=== PATIENT | female | born 1965 | race Caucasian/White ===

== ENCOUNTER 2016-04-09 16:49 | Inpatient (IN) | payer OTHER ==
[~2016-04-09] VITALS: Ht 160 cm; Wt 55.5 kg
[~2016-04-09 16:49] MED LIST: ACETAMINOPHN-T1 EACH PO; ALDACTONE50 MG PO; ALYACEN1 EACH PO; AMLODIPINE BESY10 MG PO; AMLODIPINE BESYL5 MG PO; APRESOLINE100 MG PO; APRESOLINE50 MG PO; ASPIR 8181 M1 PO; ASPIR-LOW81 MG PO; BENAZEPRIL HCL20 MG PO; BUMETANIDE1 MG PO; BUMETANIDE2 MG PO; BYSTOLIC10 MG PO; CALCIUM ACETAT667 MG PO; CLOBETASOL PROP60 GM TP; CLOPIDOGREL75 MG PO; COLACE100 MG PO; COREG12.5 M1 PO; COREG25 M1 PO; CYANOCOBAL1000 MCG/2 IM; Colchicine,Colcrys PO; DAPSONE100 MG PO; DELTASONE20 M1 PO; DOXAZOSIN MESYLA1 MG PO; DOXAZOSIN MESYLA2 MG PO; ENDOCET 5-3251 EACH PO; EYE DROPS ADVAN15 ML BOTH EYES; FERROUS SULFAT325 MG PO; FUROSEMIDE40 MG PO; GABAPENTIN100 MG PO; HUMALOG100 UNIT/1 SC; IMDUR60 MG PO; KEFLEX500 MG PO; KLOR-CON M2020 MEQ PO; LANTUS 10100 UNITS/ SC; LASIX20 MG PO; LASIX80 MG PO; LEVAQUIN500 MG PO; LEVEMIR100 UNIT/2 SC; LEVOFLOXACIN750 MG PO; LIPITOR80 MG PO; LITE COAT ASPI325 M1 PO; LOPRESSOR50 MG PO; LOSARTAN POTAS100 MG PO; LYRICA100 MG PO; MEPRON750 MG/5 M PO; METOLAZONE5 MG PO; MIRALAX17 GM PO; NABI650T PO; NEUPRO1 EAC3 TD; NORVASC10 MG PO; PANTOPRAZOLE SO20 MG PO; PANTOPRAZOLE SO40 MG PO; PLAQUENIL200 MG PO; PLAVIX75 MG PO; PRAVACHOL80 MG PO; PRAVASTATIN SOD40 MG PO; PRAVASTATIN SOD80 MG PO; PREDNISONE10 MG PO; PREDNISONE20 MG PO; PROCRIT10000 UNI1 SC; SIMVASTATIN20 MG PO; SPIRONOLACTONE25 MG PO; SPIRONOLACTONE50 MG PO; TYLENOL REGULA325 MG PO; ULTRAM50 MG PO; ZOFRAN4 MG PO; ZOLOFT25 MG PO; ZOLOFT50 MG PO
[2016-04-09 17:42] LABS: HEMATOCRIT 36.7 % (36.0-46.0); MCH 32.9 PG (29.0-34.0); MCV 99.7 FL (83-99); MEAN PLAT.VOLUME 10.4 uM^3 (9.5-12.4); PLATELET COUNT 205 K/uL (156-360); RBC DIS.WIDTH-CV 14.7 % (11.8-14.6); RBC DIS.WIDTH-SD 51.5 % (39-53); RED BLOOD COUNT 3.68 M/uL (3.80-5.20); WHITE BLOOD COUNT 12.3 K/uL (4.1-10.2)
[2016-04-09 17:43] LABS: CHLORIDE 99 mEq/L (99-109); POTASSIUM 4.8 mEq/L (3.7-5.4); SODIUM 135 mEq/L (136-147)
[2016-04-09 17:46] LABS: ANION GAP 15 MEQ/L (2-14)
[2016-04-09 17:49] LABS: GFR ESTIMATE (CALCULATED) 21 mL/min/; UREA NITROGEN (BUN) 64 mg/dL (9-23)
[2016-04-09 17:57] LABS: TROP-I INTERPRETATION NEGATIVE; TROPONIN-I 0.07 ng/mL (0.0-0.30)
[2016-04-09 18:05] LABS: GLUCOSE 425 mg/dL (70-99)
[2016-04-09 18:59] LABS: D-DIMER ELISA 0.87 mg/L FEU (< 0.57)
[2016-04-09] MEDS ORDERED: ALDACTONE25 MG PO (20:19)
[2016-04-09] MEDS ORDERED: PROTONIX40 MG PO (20:21)
[2016-04-09] MEDS ORDERED: CELLCEPT500 MG PO (20:24)
[2016-04-09] MEDS ORDERED: BUMETANIDE2 MG PO (20:24)
[2016-04-09 22:42] LABS: POINT-OF-CARE METER ID UU13113702
[2016-04-09 23:08] VITALS: BP 138/66
[2016-04-10 04:00] VITALS: BP 153/81
[2016-04-10 06:23] LABS: HEMATOCRIT 29.1 % (36.0-46.0); MCH 32.3 PG (29.0-34.0); MCHC 32.3 G/DL (30.0-36.0); MEAN PLAT.VOLUME 9.8 uM^3 (9.5-12.4); PLATELET COUNT 163 K/uL (156-360); RBC DIS.WIDTH-SD 55.1 % (39-53); WHITE BLOOD COUNT 9.3 K/uL (4.1-10.2)
[2016-04-10 06:24] LABS: RED BLOOD COUNT 2.91 M/uL (3.80-5.20)
[2016-04-10 06:38] LABS: ANION GAP 7 MEQ/L (2-14); CHLORIDE 109 MEQ/L (99-109); SAMPLE HEMOLYSIS CHECK 0; SAMPLE ICTERIC CHECK 0; SAMPLE LIPEMIA CHECK 0; SODIUM 141 MEQ/L (136-147); UREA NITROGEN (BUN) 44 mg/dL (9-23)
[2016-04-10 06:41] LABS: GFR ESTIMATE (CALCULATED) 39 mL/min/; GLUCOSE 141 mg/dL (70-99); POTASSIUM 3.8 MEQ/L (3.7-5.4)
[2016-04-10 07:34] LABS: POINT-OF-CARE METER ID UU14174216
[2016-04-10 08:27] LABS: TROP-I INTERPRETATION NEGATIVE; TROPONIN-I 0.09 ng/mL (0.0-0.30)
[2016-04-10 09:28] VITALS: BP 151/76
[2016-04-10 11:42] LABS: POINT-OF-CARE METER ID UU14174216
[2016-04-10 12:35] VITALS: BP 128/66
[2016-04-10 16:27] VITALS: BP 134/65
[2016-04-10 16:29] LABS: POINT-OF-CARE METER ID UU14174216
[2016-04-10 19:53] VITALS: BP 141/67
[2016-04-10 23:55] VITALS: BP 142/67
[2016-04-11 04:00] VITALS: BP 136/73
[2016-04-11 06:52] LABS: EOSINOPHIL (%) 0 % (0-5); IMMATURE GRANULOCYTE (%) 1.9 % (0.0-0.7); IMMATURE GRANULOCYTE COUNT 0.2 K/uL; LYMPHOCYTE COUNT 0.5 K/uL (1.0-2.8); MCH 32.1 PG (29.0-34.0); MCHC 31.9 G/DL (30.0-36.0); MCV 100.6 FL (83-99); MEAN PLAT.VOLUME 10.5 uM^3 (9.5-12.4); MONOCYTE (%) 6.2 % (3-12); MONOCYTE COUNT 0.5 K/uL (0-0.8); NEUTROPHIL (%) 85.3 % (45-76); NEUTROPHIL COUNT 6.8 K/uL (1.8-6.4); NRBC (%) 0.9 /100 WBC (0-0); PLATELET COUNT 171 K/uL (156-360); RBC DIS.WIDTH-CV 15.2 % (11.8-14.6); RED BLOOD COUNT 3.18 M/uL (3.80-5.20)
[2016-04-11 07:20] LABS: ANION GAP 8 MEQ/L (2-14); CHLORIDE 105 MEQ/L (99-109); GFR ESTIMATE (CALCULATED) 42 mL/min/; POTASSIUM 3.4 MEQ/L (3.7-5.4); SAMPLE HEMOLYSIS CHECK 0; SAMPLE ICTERIC CHECK 0; SAMPLE LIPEMIA CHECK 0; SODIUM 144 MEQ/L (136-147); UREA NITROGEN (BUN) 32 mg/dL (9-23)
[2016-04-11 07:21] LABS: GLUCOSE 86 mg/dL (70-99)
[2016-04-11 07:25] LABS: POINT-OF-CARE METER ID UU14174216
[2016-04-11 07:27] VITALS: BP 169/81
[2016-04-11 11:13] LABS: POINT-OF-CARE METER ID UU14174216
[2016-04-11 12:00] VITALS: BP 129/61
[2016-04-11 16:24] LABS: POINT-OF-CARE METER ID UU14174216
[2016-04-11 16:44] VITALS: BP 131/65
[2016-04-11 19:43] VITALS: BP 142/65
[2016-04-11 21:10] LABS: POINT-OF-CARE METER ID UU14174216
[2016-04-11 23:17] VITALS: BP 142/71
[2016-04-12 04:50] VITALS: BP 131/78
[2016-04-12 06:03] LABS: EOSINOPHIL (%) 0 % (0-5); HEMATOCRIT 31.3 % (36.0-46.0); IMMATURE GRANULOCYTE (%) 1.9 % (0.0-0.7); IMMATURE GRANULOCYTE COUNT 0.2 K/uL; LYMPHOCYTE COUNT 0.4 K/uL (1.0-2.8); MCH 31.5 PG (29.0-34.0); MCHC 31.3 G/DL (30.0-36.0); MCV 100.6 FL (83-99); MEAN PLAT.VOLUME 10.3 uM^3 (9.5-12.4); MONOCYTE (%) 5.7 % (3-12); MONOCYTE COUNT 0.5 K/uL (0-0.8); NEUTROPHIL (%) 86.9 % (45-76); NEUTROPHIL COUNT 6.8 K/uL (1.8-6.4); NRBC (%) 0.8 /100 WBC (0-0); PLATELET COUNT 172 K/uL (156-360); RBC DIS.WIDTH-CV 14.9 % (11.8-14.6); RBC DIS.WIDTH-SD 54.9 % (39-53); RED BLOOD COUNT 3.11 M/uL (3.80-5.20); WHITE BLOOD COUNT 7.9 K/uL (4.1-10.2)
[2016-04-12 06:37] LABS: ANION GAP 9 MEQ/L (2-14); CHLORIDE 104 MEQ/L (99-109); GFR ESTIMATE (CALCULATED) 39 mL/min/; SAMPLE HEMOLYSIS CHECK 0; SAMPLE ICTERIC CHECK 0; SAMPLE LIPEMIA CHECK 0; SODIUM 146 MEQ/L (136-147); UREA NITROGEN (BUN) 33 mg/dL (9-23)
[2016-04-12 06:40] LABS: GLUCOSE 51 mg/dL (70-99)
[2016-04-12 08:00] VITALS: BP 143/75
[2016-04-12 11:24] LABS: POINT-OF-CARE METER ID UU14174216
[2016-04-12 12:00] VITALS: BP 136/72
[2016-04-12] MEDS ORDERED: LEVAQUIN250 MG PO (14:02)
[2016-04-12] MEDS ORDERED: PREDNISONE10 MG PO (14:02)
[2016-04-12] MEDS ORDERED: CLINDAMYCIN HC300 MG PO (14:02)
[2016-04-12] MEDS ORDERED: MYCOSTATIN 100,60 ML PO (14:02)
[2016-04-12] MEDS ORDERED: FLORASTOR250 MG PO (14:02)
== END 2016-04-12 15:38 | disposition home health service (06) | DRG 177 ==
LOC: EME 16:49 → 4EAST 21:25 → EDOF 21:25 → 4EAST 23:01
PROVIDERS: Emergency Medicine; Internal Medicine; Student in an Organized Health Care Education/Training Program
DX: J85.1 Abscess of lung with pneumonia (principal); J96.21 Acute and chronic respiratory failure with hypoxia; I13.0 Hypertensive heart and chronic kidney disease with heart failure and stage 1 through stage 4 chronic kidney disease, or unspecified chronic kidney disease; E87.2 Acidosis; I50.30 Unspecified diastolic (congestive) heart failure; M32.14 Glomerular disease in systemic lupus erythematosus; N18.4 Chronic kidney disease, stage 4 (severe); E78.2 Mixed hyperlipidemia; I25.10 Atherosclerotic heart disease of native coronary artery without angina pectoris; I27.2 Other secondary pulmonary hypertension; Z95.5 Presence of coronary angioplasty implant and graft; D63.1 Anemia in chronic kidney disease; I25.2 Old myocardial infarction; Z79.899 Other long term (current) drug therapy; Z79.52 Long term (current) use of systemic steroids; E11.22 Type 2 diabetes mellitus with diabetic chronic kidney disease; K21.9 Gastro-esophageal reflux disease without esophagitis; F32.9 Major depressive disorder, single episode, unspecified; G89.4 Chronic pain syndrome
CPT/HCPCS: 71020; 71250; 80048; 82948; 83605; 83880; 84484; 85025; 85027; 85379; 87040; 93005; 94760; 94799; 99281; 99285; J0456; J0696; J1650; J1815; J2405; J3370; J7030; J7050; J7512; J7517

== ENCOUNTER 2016-06-28 14:45 | Inpatient (IN) | payer OTHER ==
[~2016-06-28] VITALS: Ht 1110 cm; Wt 57.2 kg
[~2016-06-28 14:45] MED LIST changes: +ALDACTONE25 MG PO; +AMOX TR-K CLV1 EAC4 PO; +CELLCEPT500 MG PO; +CLINDAMYCIN HC300 MG PO; +FLORASTOR250 MG PO; +LEVAQUIN250 MG PO; +LISINOPRIL2.5 MG PO; +MYCOSTATIN 100,60 ML PO; +PROTONIX40 MG PO
[2016-06-28 16:15] LABS: HEMATOCRIT 30.6 % (36.0-46.0); MCH 30.2 PG (29.0-34.0); MCHC 31.7 G/DL (30.0-36.0); MCV 95.3 FL (83-99); MEAN PLAT.VOLUME 9.8 uM^3 (9.5-12.4); PLATELET COUNT 263 K/uL (156-360); RBC DIS.WIDTH-CV 14.3 % (11.8-14.6); RBC DIS.WIDTH-SD 49.9 % (39-53); RED BLOOD COUNT 3.21 M/uL (3.80-5.20); WHITE BLOOD COUNT 11.5 K/uL (4.1-10.2)
[2016-06-28 16:24] LABS: CHLORIDE 98 mEq/L (99-109); POTASSIUM 4.1 mEq/L (3.7-5.4); SODIUM 138 mEq/L (136-147)
[2016-06-28 16:27] LABS: GLUCOSE 164 mg/dL (70-99); PROTHROMBIN TIME 10.5 (9.2-11.2); PTT 20.6 (25-32)
[2016-06-28 16:28] LABS: ANION GAP 16 MEQ/L (2-14)
[2016-06-28 16:29] LABS: TOTAL BILIRUBIN 0.4 mg/dL (0.0-1.0)
[2016-06-28 16:30] LABS: ALKALINE PHOSPHATASE 100 IU/L (3-129); GFR ESTIMATE (CALCULATED) 11 mL/min/
[2016-06-28 16:31] LABS: UREA NITROGEN (BUN) 64 mg/dL (9-23)
[2016-06-28] MEDS ORDERED: ATOVAQUONE750 MG/5 M PO (19:58)
[2016-06-28] MEDS ORDERED: AUGMENTIN875 MG PO (19:59)
[2016-06-28] MEDS ORDERED: DELTASONE20 M1 PO (20:03)
[2016-06-28 23:31] VITALS: BP 127/60
[2016-06-29 01:29] VITALS: BP 152/68
[2016-06-29 04:33] LABS: POINT-OF-CARE METER ID UU13113725; POINT-OF-CARE USER ID 608261329
[2016-06-29 05:51] LABS: POINT-OF-CARE METER ID UU13113725
[2016-06-29 06:36] LABS: EOSINOPHIL (%) 1.2 % (0-5); EOSINOPHIL COUNT 0.1 K/uL (0-0.3); HEMATOCRIT 24.1 % (36.0-46.0); IMMATURE GRANULOCYTE (%) 2.3 % (0.0-0.7); IMMATURE GRANULOCYTE COUNT 0.2 K/uL; INSTRUMENT ABS NEUTROPHIL CT 5.2 K/uL; LYMPHOCYTE COUNT 1.7 K/uL (1.0-2.8); MCH 30.6 PG (29.0-34.0); MCV 95.6 FL (83-99); MEAN PLAT.VOLUME 10.1 uM^3 (9.5-12.4); MONOCYTE (%) 7.9 % (3-12); MONOCYTE COUNT 0.6 K/uL (0-0.8); NEUTROPHIL COUNT 5.2 K/uL (1.8-6.4); PLATELET COUNT 219 K/uL (156-360); RBC DIS.WIDTH-CV 14.4 % (11.8-14.6); RBC DIS.WIDTH-SD 50.4 % (39-53)
[2016-06-29 06:37] LABS: RED BLOOD COUNT 2.52 M/uL (3.80-5.20); WHITE BLOOD COUNT 7.7 K/uL (4.1-10.2)
[2016-06-29 06:44] LABS: ANION GAP 9 MEQ/L (2-14); CHLORIDE 105 MEQ/L (99-109); GFR ESTIMATE (CALCULATED) 14 mL/min/; GLUCOSE 128 mg/dL (70-99); POTASSIUM 3.8 MEQ/L (3.7-5.4); SAMPLE HEMOLYSIS CHECK 0; SAMPLE ICTERIC CHECK 0; SAMPLE LIPEMIA CHECK 0; SODIUM 142 MEQ/L (136-147); UREA NITROGEN (BUN) 61 mg/dL (9-23)
[2016-06-29 07:34] LABS: POINT-OF-CARE USER ID 608261329
[2016-06-29 09:15] VITALS: BP 110/59
[2016-06-29 09:43] LABS: POINT-OF-CARE METER ID UU13113725; POINT-OF-CARE USER ID 608261329
[2016-06-29 11:56] LABS: POINT-OF-CARE METER ID UU13113725
[2016-06-29 17:00] LABS: POINT-OF-CARE METER ID UU13113725
[2016-06-29 17:52] VITALS: BP 119/61
[2016-06-29 20:03] VITALS: BP 129/60
[2016-06-29 22:29] LABS: GLUCOSE 620 mg/dL (70-99)
[2016-06-29 22:36] VITALS: BP 131/61
[2016-06-30 03:12] LABS: POINT-OF-CARE METER ID UU13113725
[2016-06-30 05:55] LABS: POINT-OF-CARE METER ID UU13113725
[2016-06-30 06:11] LABS: EOSINOPHIL (%) 0 % (0-5); IMMATURE GRANULOCYTE (%) 2.8 % (0.0-0.7); IMMATURE GRANULOCYTE COUNT 0.2 K/uL; INSTRUMENT ABS NEUTROPHIL CT 6.4 K/uL; LYMPHOCYTE COUNT 0.9 K/uL (1.0-2.8); MCH 30.3 PG (29.0-34.0); MCHC 31.3 G/DL (30.0-36.0); MCV 96.6 FL (83-99); MEAN PLAT.VOLUME 10.1 uM^3 (9.5-12.4); MONOCYTE (%) 7.6 % (3-12); MONOCYTE COUNT 0.6 K/uL (0-0.8); NEUTROPHIL (%) 78.7 % (45-76); NEUTROPHIL COUNT 6.4 K/uL (1.8-6.4); NRBC (%) 0.4 /100 WBC (0-0); PLATELET COUNT 211 K/uL (156-360); RBC DIS.WIDTH-CV 14.5 % (11.8-14.6); RED BLOOD COUNT 2.38 M/uL (3.80-5.20); WHITE BLOOD COUNT 8.1 K/uL (4.1-10.2)
[2016-06-30 06:49] LABS: ANION GAP 10 MEQ/L (2-14); CHLORIDE 103 MEQ/L (99-109); GLUCOSE 324 mg/dL (70-99); MAGNESIUM 1.7 mg/dl (1.3-2.7); SAMPLE HEMOLYSIS CHECK 0; SAMPLE ICTERIC CHECK 0; SAMPLE LIPEMIA CHECK 0; SODIUM 136 MEQ/L (136-147); UREA NITROGEN (BUN) 51 mg/dL (9-23)
[2016-06-30 06:51] LABS: GFR ESTIMATE (CALCULATED) 19 mL/min/; POTASSIUM 4.6 MEQ/L (3.7-5.4)
[2016-06-30 08:21] VITALS: BP 123/66
[2016-06-30 12:24] LABS: POINT-OF-CARE METER ID UU13113725
[2016-06-30 15:04] VITALS: BP 132/63
[2016-06-30 16:44] LABS: POINT-OF-CARE METER ID UU13113725
[2016-06-30 22:52] VITALS: BP 146/67
[2016-06-30 23:05] LABS: POINT-OF-CARE METER ID UU13113725
[2016-07-01 06:02] LABS: EOSINOPHIL (%) 0.2 % (0-5); HEMATOCRIT 23.9 % (36.0-46.0); IMMATURE GRANULOCYTE (%) 4.7 % (0.0-0.7); IMMATURE GRANULOCYTE COUNT 0.4 K/uL; INSTRUMENT ABS NEUTROPHIL CT 6.4 K/uL; LYMPHOCYTE COUNT 1.6 K/uL (1.0-2.8); MCH 30.1 PG (29.0-34.0); MCHC 31.4 G/DL (30.0-36.0); MEAN PLAT.VOLUME 9.8 uM^3 (9.5-12.4); MONOCYTE (%) 6.6 % (3-12); MONOCYTE COUNT 0.6 K/uL (0-0.8); NEUTROPHIL (%) 70.8 % (45-76); NEUTROPHIL COUNT 6.4 K/uL (1.8-6.4); NRBC (%) 0.2 /100 WBC (0-0); PLATELET COUNT 227 K/uL (156-360); RBC DIS.WIDTH-CV 14.3 % (11.8-14.6); RBC DIS.WIDTH-SD 50.2 % (39-53); RED BLOOD COUNT 2.49 M/uL (3.80-5.20)
[2016-07-01 06:35] LABS: ANION GAP 9 MEQ/L (2-14); CHLORIDE 107 MEQ/L (99-109); GFR ESTIMATE (CALCULATED) 21 mL/min/; POTASSIUM 4.2 MEQ/L (3.7-5.4); SAMPLE HEMOLYSIS CHECK 0; SAMPLE ICTERIC CHECK 0; SAMPLE LIPEMIA CHECK 0; UREA NITROGEN (BUN) 47 mg/dL (9-23)
[2016-07-01 06:38] LABS: GLUCOSE 93 mg/dL (70-99); SODIUM 143 MEQ/L (136-147)
[2016-07-01 06:50] VITALS: BP 145/65
[2016-07-01] MEDS ORDERED: VALACYCLOVIR500 MG PO (08:54)
[2016-07-01] MEDS ORDERED: KEFLEX500 MG PO (08:54)
[2016-07-01] MEDS ORDERED: BUMETANIDE2 MG PO (10:05)
== END 2016-07-01 12:40 | disposition home health service (06) | DRG 603 ==
LOC: EME 14:45 → EDOF 22:10 → 5EAST 22:10
PROVIDERS: Family Medicine; Internal Medicine; Internal Medicine Nephrology; Physician Assistant
DX: L03.115 Cellulitis of right lower limb (principal); N17.9 Acute kidney failure, unspecified; N18.4 Chronic kidney disease, stage 4 (severe); I50.32 Chronic diastolic (congestive) heart failure; I13.0 Hypertensive heart and chronic kidney disease with heart failure and stage 1 through stage 4 chronic kidney disease, or unspecified chronic kidney disease; I11.0 Hypertensive heart disease with heart failure; M32.9 Systemic lupus erythematosus, unspecified; D63.1 Anemia in chronic kidney disease; B02.9 Zoster without complications; I25.2 Old myocardial infarction; E10.22 Type 1 diabetes mellitus with diabetic chronic kidney disease; Z95.5 Presence of coronary angioplasty implant and graft; I25.10 Atherosclerotic heart disease of native coronary artery without angina pectoris; D89.9 Disorder involving the immune mechanism, unspecified; Z79.01 Long term (current) use of anticoagulants; E78.5 Hyperlipidemia, unspecified; Z88.1 Allergy status to other antibiotic agents; Z88.8 Allergy status to other drugs, medicaments and biological substances
CPT/HCPCS: 73564; 73590; 80048; 80053; 82948; 83605; 83735; 84100; 84999; 85025; 85027; 85610; 85730; 87040; 93971; 99281; 99284; J0690; J1644; J1815; J2543; J3370; J7030; J7050; J7512

== ENCOUNTER 2016-09-12 22:36 | Inpatient (IN) | payer OTHER ==
[~2016-09-12] VITALS: Ht 160 cm; Wt 59.0 kg
[~2016-09-12 22:36] MED LIST changes: +ATOVAQUONE750 MG/5 M PO; +AUGMENTIN875 MG PO; +VALACYCLOVIR500 MG PO
[2016-09-13 00:07] LABS: HEMATOCRIT 29.8 % (36.0-46.0); MCH 29.3 PG (29.0-34.0); MCHC 31.2 G/DL (30.0-36.0); RBC DIS.WIDTH-CV 13.5 % (11.8-14.6); RBC DIS.WIDTH-SD 46.4 % (39-53); RED BLOOD COUNT 3.17 M/uL (3.80-5.20); WHITE BLOOD COUNT 10.9 K/uL (4.1-10.2)
[2016-09-13 00:15] LABS: PLATELET COUNT 264 K/uL (156-360)
[2016-09-13 00:16] LABS: CHLORIDE 95 mEq/L (99-109); POTASSIUM 4.4 mEq/L (3.7-5.4); SODIUM 129 mEq/L (136-147)
[2016-09-13 00:17] LABS: D-DIMER ELISA 0.86 mg/L FEU (< 0.57)
[2016-09-13 00:19] LABS: ANION GAP 12 MEQ/L (2-14)
[2016-09-13 00:22] LABS: GFR ESTIMATE (CALCULATED) 12 mL/min/
[2016-09-13 00:23] LABS: UREA NITROGEN (BUN) 71 mg/dL (9-23)
[2016-09-13 00:26] LABS: TROP-I INTERPRETATION NEGATIVE; TROPONIN-I 0.01 ng/mL (0.0-0.30)
[2016-09-13 00:41] LABS: GLUCOSE 745 mg/dL (70-99)
[2016-09-13 01:21] LABS: INTER. NORMALIZED RATIO 1.2; PROTHROMBIN TIME 12.6 (9.2-11.2); PTT 28.8 (25-32)
[2016-09-13 02:25] LABS: GLUCOSE 702 mg/dL (70-99)
[2016-09-13 04:36] LABS: SODIUM 135 mEq/L (136-147)
[2016-09-13 04:39] LABS: ANION GAP 8 MEQ/L (2-14)
[2016-09-13 04:42] LABS: UREA NITROGEN (BUN) 65 mg/dL (9-23)
[2016-09-13 04:44] LABS: CHLORIDE 106 mEq/L (99-109); GFR ESTIMATE (CALCULATED) 17 mL/min/; GLUCOSE 433 mg/dL (70-99); POTASSIUM 3.5 mEq/L (3.7-5.4)
[2016-09-13 09:08] LABS: TROP-I INTERPRETATION NEGATIVE; TROPONIN-I < 0.01 ng/mL (0.0-0.30)
[2016-09-13 09:47] LABS: ADD MIUA? YES; BILIRUBIN NEGATIVE; BLOOD SMALL; COLOR STRAW ((YELLOW)); GLUCOSE (STRIP) >=500; KETONES NEGATIVE; LEUKOCYTES NEGATIVE; NITRITE NEGATIVE; PROTEIN (STRIP) NEGATIVE; SPECIFIC GRAVITY 1.006 (1.000-1.030); UROBILINOGEN 0.2 MG/DL (0.2-1.0)
[2016-09-13 09:49] LABS: BACTERIA NONE SEEN /HPF; EPITHELIAL CELLS NONE SEEN /HPF; MUCUS TRACE /LPF; RED BLOOD CELLS 0-5 /HPF (0-5); UCUL ADDED? NO; WHITE BLOOD CELLS 0-5 /HPF (0-5)
[2016-09-13] MEDS ORDERED: BUMETANIDE2 MG PO (10:01)
[2016-09-13] MEDS ORDERED: KEFLEX500 MG PO (10:03)
[2016-09-13] MEDS ORDERED: FERROUS SULFAT325 MG PO (10:04)
[2016-09-13] MEDS ORDERED: HUMALOG100 UNIT/2 SC ×2 (10:05→10:06)
[2016-09-13] MEDS ORDERED: PREDNISONE5 MG PO (10:08)
[2016-09-13] MEDS ORDERED: CORTISPORI200 DROPS/ TP (10:10)
[2016-09-13] MEDS ORDERED: AMLODIPINE BESY10 MG PO (10:10)
[2016-09-13 10:41] LABS: Estimated Average Glucose 223 mg/dL (70-123)
[2016-09-13 11:11] LABS: HEMOGLOBIN A1c (GLYCOHEMOGLOB) 9.4 % HGB (Below 5.7)
[2016-09-13 12:09] LABS: POINT-OF-CARE METER ID UU13113807
[2016-09-13 12:09] LABS: POINT-OF-CARE METER ID UU13113702
[2016-09-13 17:05] VITALS: BP 135/66
[2016-09-13 17:22] LABS: POINT-OF-CARE METER ID UU13113807
[2016-09-13 20:00] VITALS: BP 139/66
[2016-09-13 21:31] LABS: POINT-OF-CARE METER ID UU13113807
[2016-09-14] VITALS: BP 128/60
[2016-09-14 04:04] VITALS: BP 152/68
[2016-09-14 05:49] LABS: EOSINOPHIL (%) 2.5 % (0-5); EOSINOPHIL COUNT 0.3 K/uL (0-0.3); HEMATOCRIT 25.5 % (36.0-46.0); IMMATURE GRANULOCYTE (%) 1.2 % (0.0-0.7); IMMATURE GRANULOCYTE COUNT 0.1 K/uL; LYMPHOCYTE COUNT 1.9 K/uL (1.0-2.8); MCHC 31.8 G/DL (30.0-36.0); MCV 94.4 FL (83-99); MEAN PLAT.VOLUME 9.9 uM^3 (9.5-12.4); MONOCYTE (%) 7.6 % (3-12); MONOCYTE COUNT 0.9 K/uL (0-0.8); NEUTROPHIL (%) 71.2 % (45-76); PLATELET COUNT 247 K/uL (156-360); RBC DIS.WIDTH-CV 13.5 % (11.8-14.6); RBC DIS.WIDTH-SD 46.5 % (39-53); WHITE BLOOD COUNT 11.2 K/uL (4.1-10.2)
[2016-09-14 06:33] LABS: ANION GAP 11 MEQ/L (2-14); CHLORIDE 109 MEQ/L (99-109); GFR ESTIMATE (CALCULATED) 31 mL/min/; GLUCOSE 241 mg/dL (70-99); MAGNESIUM 1.3 mg/dl (1.3-2.7); POTASSIUM 4.9 MEQ/L (3.7-5.4); SAMPLE HEMOLYSIS CHECK 0; SAMPLE ICTERIC CHECK 0; SAMPLE LIPEMIA CHECK 0; SODIUM 140 MEQ/L (136-147); UREA NITROGEN (BUN) 39 mg/dL (9-23)
[2016-09-14 08:11] LABS: POINT-OF-CARE METER ID UU13113807
[2016-09-14 08:17] VITALS: BP 149/65
[2016-09-14 08:57] LABS: POINT-OF-CARE METER ID UU13113807
[2016-09-14 09:46] LABS: TROP-I INTERPRETATION NEGATIVE; TROPONIN-I 0.01 ng/mL (0.0-0.30)
[2016-09-14 12:21] VITALS: BP 132/66
[2016-09-14 12:22] LABS: POINT-OF-CARE METER ID UU13113807
[2016-09-14] MEDS ORDERED: LEVEMIR100 UNIT/2 SC (13:57)
[2016-09-14] MEDS ORDERED: GLUCAGON1 MG IM (13:58)
[2016-09-14] MEDS ORDERED: BUMETANIDE2 MG PO ×2 (14:00→14:31)
== END 2016-09-14 15:45 | disposition home or self-care (01) | DRG 683 ==
LOC: EME 22:36 → 4SOUTH 09-13 03:22 → EDOF 09-13 03:22 → 4SOUTH 09-13 10:05
PROVIDERS: Emergency Medicine; Hospitalist
DX: N17.9 Acute kidney failure, unspecified (principal); E87.1 Hypo-osmolality and hyponatremia; R07.89 Other chest pain; I11.9 Hypertensive heart disease without heart failure; I50.30 Unspecified diastolic (congestive) heart failure; E11.65 Type 2 diabetes mellitus with hyperglycemia; E11.22 Type 2 diabetes mellitus with diabetic chronic kidney disease; M32.14 Glomerular disease in systemic lupus erythematosus; N18.4 Chronic kidney disease, stage 4 (severe); D63.1 Anemia in chronic kidney disease; E86.0 Dehydration; E78.5 Hyperlipidemia, unspecified; G89.4 Chronic pain syndrome; I25.10 Atherosclerotic heart disease of native coronary artery without angina pectoris; K21.9 Gastro-esophageal reflux disease without esophagitis; M79.7 Fibromyalgia; F32.9 Major depressive disorder, single episode, unspecified; I25.2 Old myocardial infarction; Z79.4 Long term (current) use of insulin; Z79.52 Long term (current) use of systemic steroids; Z82.5 Family history of asthma and other chronic lower respiratory diseases; Z83.3 Family history of diabetes mellitus; Z95.5 Presence of coronary angioplasty implant and graft; Z91.81 History of falling
CPT/HCPCS: 70450; 71020; 71250; 73030; 73610; 80048; 81003; 82010; 82800; 82948; 83036; 83735; 84100; 84484; 84999; 85025; 85027; 85379; 85610; 85730; 93005; 99281; 99285; J1644; J1815; J2270; J2405; J7030; J7512

== ENCOUNTER 2016-11-06 19:48 | Emergency (ER) | payer OTHER ==
[~2016-11-06] VITALS: Ht 160 cm; Wt 57.2 kg
[~2016-11-06 19:48] MED LIST changes: +CORTISPORI200 DROPS/ TP; +GLUCAGON1 MG IM; +HUMALOG100 UNIT/2 SC; +PREDNISONE5 MG PO
[2016-11-06 20:34] LABS: HEMATOCRIT 28.1 % (36.0-46.0); MCH 28.5 PG (29.0-34.0); MCHC 31.3 G/DL (30.0-36.0); MCV 90.9 FL (83-99); MEAN PLAT.VOLUME 9.1 uM^3 (9.5-12.4); PLATELET COUNT 258 K/uL (156-360); RBC DIS.WIDTH-CV 14.8 % (11.8-14.6); RBC DIS.WIDTH-SD 49.6 % (39-53); RED BLOOD COUNT 3.09 M/uL (3.80-5.20); WHITE BLOOD COUNT 12.2 K/uL (4.1-10.2)
[2016-11-06 20:39] LABS: CHLORIDE 107 mEq/L (99-109); POTASSIUM 4.6 mEq/L (3.7-5.4); SODIUM 138 mEq/L (136-147)
[2016-11-06 20:41] LABS: GLUCOSE 279 mg/dL (70-99)
[2016-11-06 20:43] LABS: ANION GAP 10 MEQ/L (2-14)
[2016-11-06 20:44] LABS: GFR ESTIMATE (CALCULATED) 22 mL/min/
[2016-11-06 20:45] LABS: UREA NITROGEN (BUN) 56 mg/dL (9-23)
[2016-11-06] MEDS ORDERED: POTASSIUM CHLOR8 ME3 PO (21:22)
[2016-11-06] MEDS ORDERED: COLACE100 MG PO (21:22)
[2016-11-06] MEDS ORDERED: VIBRAMYCIN100 MG PO (21:30)
[2016-11-06 21:36] LABS: PROTHROMBIN TIME 11.3 SEC (10.2-12.9)
[2016-11-06 21:38] LABS: PTT 23.4 SEC (25-37)
[2016-11-06 21:42] VITALS: BP 134/62
== END 2016-11-06 21:43 | disposition home or self-care (01) ==
LOC: EME 19:48
PROVIDERS: Physician Assistant
DX: S80.12XA Contusion of left lower leg, initial encounter (principal); W17.89XA Other fall from one level to another, initial encounter; Z79.01 Long term (current) use of anticoagulants; I25.2 Old myocardial infarction; I13.0 Hypertensive heart and chronic kidney disease with heart failure and stage 1 through stage 4 chronic kidney disease, or unspecified chronic kidney disease; E11.22 Type 2 diabetes mellitus with diabetic chronic kidney disease; N18.9 Chronic kidney disease, unspecified; I50.9 Heart failure, unspecified; Z79.4 Long term (current) use of insulin; F32.9 Major depressive disorder, single episode, unspecified; M79.7 Fibromyalgia; M32.9 Systemic lupus erythematosus, unspecified; Z88.1 Allergy status to other antibiotic agents; Z88.6 Allergy status to analgesic agent; Z88.2 Allergy status to sulfonamides; Z95.5 Presence of coronary angioplasty implant and graft
CPT/HCPCS: 73590; 80048; 85027; 85610; 85730; 93971; 99281; 99284

== ENCOUNTER 2017-03-30 12:12 | Inpatient (IN) | payer OTHER ==
[~2017-03-30] VITALS: Ht 160 cm; Wt 68.5 kg
[~2017-03-30 12:12] MED LIST changes: +POTASSIUM CHLOR8 ME3 PO; +PREDNISONE1 MG PO; -PREDNISONE5 MG PO; +VIBRAMYCIN100 MG PO
[2017-03-30 13:25] LABS: BASOPHIL (%) 0.3 % (0-1); EOSINOPHIL (%) 0.7 % (0-5); EOSINOPHIL COUNT 0.1 K/uL (0-0.3); HEMATOCRIT 29.9 % (36.0-46.0); HEMOGLOBIN 9.8 G/DL (11.9-15.5); IMMATURE GRANULOCYTE (%) 0.7 % (0.0-0.7); LYMPHOCYTE (%) 10.3 % (15-42); LYMPHOCYTE COUNT 0.9 K/uL (1.0-2.8); MCH 28.7 PG (29.0-34.0); MCHC 32.8 G/DL (30.0-36.0); MCV 87.4 FL (83-99); MONOCYTE (%) 2.7 % (3-12); MONOCYTE COUNT 0.2 K/uL (0-0.8); NEUTROPHIL (%) 85.3 % (45-76); NEUTROPHIL COUNT 7.4 K/uL (1.8-6.4); RBC DIS.WIDTH-CV 13.9 % (11.8-14.6); RBC DIS.WIDTH-SD 44.5 % (39-53); RED BLOOD COUNT 3.42 M/uL (3.80-5.20); WHITE BLOOD COUNT 8.7 K/uL (4.1-10.2)
[2017-03-30 13:27] LABS: PLATELET COUNT 229 K/uL (156-360)
[2017-03-30 13:37] LABS: ALBUMIN 3.1 g/dL (3.2-4.8); CHLORIDE 105 mEq/L (99-109); POTASSIUM 4.6 mEq/L (3.7-5.4); SODIUM 136 mEq/L (136-147)
[2017-03-30 13:39] LABS: GLUCOSE 313 mg/dL (70-99)
[2017-03-30 13:40] LABS: TOTAL PROTEIN 6.4 g/dL (6.4-8.3)
[2017-03-30 13:41] LABS: TOTAL BILIRUBIN 0.5 mg/dL (0.0-1.0)
[2017-03-30 13:43] LABS: ALKALINE PHOSPHATASE 111 IU/L (3-129); CREATININE 3.2 mg/dL (0.6-1.3); GFR ESTIMATE (CALCULATED) 16 mL/min/
[2017-03-30 13:44] LABS: UREA NITROGEN (BUN) 51 mg/dL (9-23)
[2017-03-30 13:45] LABS: AST (GOT) 17 IU/L (2-34)
[2017-03-30 13:46] LABS: ALT (GPT) 15 IU/L (3-49)
[2017-03-30 13:49] LABS: TROP-I INTERPRETATION NEGATIVE; TROPONIN-I 0.02 ng/mL (0.0-0.30)
[2017-03-30 15:18] LABS: APPEARANCE CLOUDY ((CLEAR)); BILIRUBIN NEGATIVE; BLOOD LARGE; COLOR YELLOW ((YELLOW)); GLUCOSE (STRIP) 150; KETONES NEGATIVE; LEUKOCYTES NEGATIVE; NITRITE NEGATIVE; PROTEIN (STRIP) >=500; SPECIFIC GRAVITY 1.014 (1.000-1.030); UROBILINOGEN 0.2 MG/DL (0.2-1.0)
[2017-03-30 15:40] LABS: BACTERIA 2+ /HPF; EPITHELIAL CELLS 1+ /HPF; MUCUS NONE SEEN /LPF; RED BLOOD CELLS TNTC /HPF (0-5); UCUL ADDED? YES
[2017-03-30] MEDS ORDERED: BUMETANIDE2 MG PO (17:05)
[2017-03-30] MEDS ORDERED: HUMALOG100 UNIT/2 SC (17:06)
[2017-03-30] MEDS ORDERED: LEVAQUIN500 MG PO (17:07)
[2017-03-30] MEDS ORDERED: BASAGLAR K100 UNIT/1 SC (17:07)
[2017-03-30 19:45] VITALS: BP 156/60
[2017-03-30 20:43] LABS: TROP-I INTERPRETATION NEGATIVE; TROPONIN-I 0.02 ng/mL (0.0-0.30)
[2017-03-31] VITALS (9 sets, daily range): BP systolic 112–132; BP diastolic 58–68
[2017-03-31 02:07] LABS: BASOPHIL (%) 0.2 % (0-1); EOSINOPHIL (%) 0 % (0-5); HEMATOCRIT 24.5 % (36.0-46.0); HEMOGLOBIN 7.9 G/DL (11.9-15.5); IMMATURE GRANULOCYTE (%) 0.9 % (0.0-0.7); LYMPHOCYTE (%) 5.4 % (15-42); LYMPHOCYTE COUNT 0.6 K/uL (1.0-2.8); MCH 28.5 PG (29.0-34.0); MCHC 32.2 G/DL (30.0-36.0); MCV 88.4 FL (83-99); MONOCYTE (%) 1.3 % (3-12); MONOCYTE COUNT 0.1 K/uL (0-0.8); NEUTROPHIL (%) 92.2 % (45-76); NEUTROPHIL COUNT 10.2 K/uL (1.8-6.4); PLATELET COUNT 203 K/uL (156-360); RBC DIS.WIDTH-CV 13.7 % (11.8-14.6); RBC DIS.WIDTH-SD 44.6 % (39-53); RED BLOOD COUNT 2.77 M/uL (3.80-5.20)
[2017-03-31 02:22] LABS: CHLORIDE 105 mEq/L (99-109); POTASSIUM 4.6 mEq/L (3.7-5.4); SODIUM 134 mEq/L (136-147)
[2017-03-31 02:27] LABS: CREATININE 3.5 mg/dL (0.6-1.3); GFR ESTIMATE (CALCULATED) 15 mL/min/
[2017-03-31 02:28] LABS: UREA NITROGEN (BUN) 57 mg/dL (9-23)
[2017-03-31 02:29] LABS: TROP-I INTERPRETATION NEGATIVE; TROPONIN-I 0.03 ng/mL (0.0-0.30)
[2017-03-31 02:40] LABS: GLUCOSE 404 mg/dL (70-99)
[2017-03-31 09:15] LABS: HEMATOCRIT 23.8 % (36.0-46.0); HEMOGLOBIN 7.7 G/DL (11.9-15.5); MCH 28.8 PG (29.0-34.0); MCHC 32.4 G/DL (30.0-36.0); MCV 89.1 FL (83-99); PLATELET COUNT 223 K/uL (156-360); RBC DIS.WIDTH-CV 13.8 % (11.8-14.6); RBC DIS.WIDTH-SD 44.7 % (39-53); RED BLOOD COUNT 2.67 M/uL (3.80-5.20); WHITE BLOOD COUNT 10.1 K/uL (4.1-10.2)
[2017-03-31 09:21] LABS: CARBON DIOXIDE (BICARBONATE) 19.1 MEQ/L (20-31)
[2017-03-31 09:47] LABS: ALBUMIN 2.8 G/DL (3.2-4.8); ALKALINE PHOSPHATASE 81 IU/L (3-129); ALT (GPT) 10 IU/L (3-49); AST (GOT) 14 IU/L (2-34); CHLORIDE 107 MEQ/L (99-109); CREATININE 3.5 MG/DL (0.6-1.3); GFR ESTIMATE (CALCULATED) 15 mL/min/; GLUCOSE 158 mg/dL (70-99); SODIUM 139 MEQ/L (136-147); TOTAL BILIRUBIN 0.4 MG/DL (0.0-1.0); TOTAL PROTEIN 5.3 G/DL (6.4-8.3); UREA NITROGEN (BUN) 60 mg/dL (9-23)
[2017-03-31 10:29] LABS: HEMATOCRIT 22.4 % (36.0-46.0); HEMOGLOBIN 7.3 G/DL (11.9-15.5); MCV 88.9 FL (83-99)
[2017-03-31 11:16] LABS: BASE EXCESS -7.8 mEq/L (-3 to +3); BICARBONATE 16.3 mEq/L (22-26); CARBOXY HGB 1.9 % (0-5); METHEMOGLOBIN 1.6 % (0-1.5); PO2 61 mm Hg (80-100); pH 7.39 (7.35-7.45)
[2017-03-31 11:17] LABS: COMMENTS - BLOOD GASES A+C+; DEVICE HFNC; O2 FLOW 10 L/MIN; PCO2 27 mm Hg (35-45); SITE RR; TOTAL RESP RATE 21 resp/min
[2017-03-31 14:33] LABS: HEMOGLOBIN 7.1 G/DL (11.9-15.5); MCV 88.4 FL (83-99)
[2017-04-01 04:22] VITALS: BP 116/65
[2017-04-01 05:08] LABS: BASOPHIL (%) 0.1 % (0-1); EOSINOPHIL (%) 0 % (0-5); HEMATOCRIT 29.5 % (36.0-46.0); IMMATURE GRANULOCYTE (%) 0.7 % (0.0-0.7); LYMPHOCYTE COUNT 0.5 K/uL (1.0-2.8); MCH 28.5 PG (29.0-34.0); MCHC 32.5 G/DL (30.0-36.0); MCV 87.5 FL (83-99); MONOCYTE (%) 3.1 % (3-12); MONOCYTE COUNT 0.4 K/uL (0-0.8); NEUTROPHIL (%) 92.1 % (45-76); NEUTROPHIL COUNT 11.1 K/uL (1.8-6.4); PLATELET COUNT 206 K/uL (156-360); RBC DIS.WIDTH-CV 14.4 % (11.8-14.6); RBC DIS.WIDTH-SD 46.1 % (39-53)
[2017-04-01 05:09] LABS: HEMOGLOBIN 9.6 G/DL (11.9-15.5); RED BLOOD COUNT 3.37 M/uL (3.80-5.20)
[2017-04-01 05:34] LABS: CHLORIDE 105 MEQ/L (99-109); GFR ESTIMATE (CALCULATED) 9 mL/min/; GLUCOSE 160 mg/dL (70-99); MAGNESIUM 1.7 mg/dl (1.3-2.7); PHOSPHORUS 5.9 mg/dL (2.5-4.9); POTASSIUM 4.9 MEQ/L (3.7-5.4); SODIUM 136 MEQ/L (136-147); UREA NITROGEN (BUN) 68 mg/dL (9-23)
[2017-04-01 05:35] LABS: CREATININE 5.2 MG/DL (0.6-1.3)
[2017-04-01 08:17] VITALS: BP 120/68
[2017-04-01 11:00] VITALS: BP 113/68; BP 139/77
[2017-04-01 14:59] VITALS: BP 106/58
[2017-04-01 20:00] VITALS: BP 111/60
[2017-04-01 23:55] VITALS: BP 129/72
[2017-04-02 04:00] VITALS: BP 121/66
[2017-04-02 06:31] LABS: BASOPHIL (%) 0.1 % (0-1); EOSINOPHIL (%) 0 % (0-5); HEMATOCRIT 30.3 % (36.0-46.0); IMMATURE GRANULOCYTE (%) 0.6 % (0.0-0.7); LYMPHOCYTE (%) 2.5 % (15-42); LYMPHOCYTE COUNT 0.3 K/uL (1.0-2.8); MCH 28.3 PG (29.0-34.0); MCV 85.8 FL (83-99); MONOCYTE (%) 2.7 % (3-12); MONOCYTE COUNT 0.3 K/uL (0-0.8); NEUTROPHIL (%) 94.1 % (45-76); NEUTROPHIL COUNT 11.9 K/uL (1.8-6.4); NRBC (%) 0.2 /100 WBC (0-0); PLATELET COUNT 232 K/uL (156-360); RBC DIS.WIDTH-CV 14.3 % (11.8-14.6); RBC DIS.WIDTH-SD 45.1 % (39-53); RED BLOOD COUNT 3.53 M/uL (3.80-5.20); WHITE BLOOD COUNT 12.7 K/uL (4.1-10.2)
[2017-04-02 07:07] LABS: CHLORIDE 102 MEQ/L (99-109); CREATININE 6.2 MG/DL (0.6-1.3); GFR ESTIMATE (CALCULATED) 8 mL/min/; GLUCOSE 112 mg/dL (70-99); POTASSIUM 4.3 MEQ/L (3.7-5.4); SODIUM 132 MEQ/L (136-147); UREA NITROGEN (BUN) 82 mg/dL (9-23)
[2017-04-02 09:00] VITALS: BP 126/67
[2017-04-02 12:31] VITALS: BP 117/65
[2017-04-02 16:53] VITALS: BP 127/63
[2017-04-02 20:14] VITALS: BP 140/72
[2017-04-03] VITALS (7 sets, daily range): BP systolic 132–186; BP diastolic 63–89
[2017-04-03 09:26] LABS: HEMATOCRIT 29.6 % (36.0-46.0); HEMOGLOBIN 9.7 G/DL (11.9-15.5); MCH 28.3 PG (29.0-34.0); MCHC 32.8 G/DL (30.0-36.0); MCV 86.3 FL (83-99); PLATELET COUNT 225 K/uL (156-360); RBC DIS.WIDTH-CV 13.9 % (11.8-14.6); RBC DIS.WIDTH-SD 43.3 % (39-53); RED BLOOD COUNT 3.43 M/uL (3.80-5.20); WHITE BLOOD COUNT 11.4 K/uL (4.1-10.2)
[2017-04-03 10:28] LABS: CHLORIDE 102 MEQ/L (99-109); CREATININE 7.2 MG/DL (0.6-1.3); GFR ESTIMATE (CALCULATED) 6 mL/min/; GLUCOSE 161 mg/dL (70-99); POTASSIUM 4.2 MEQ/L (3.7-5.4); SODIUM 134 MEQ/L (136-147); UREA NITROGEN (BUN) 91 mg/dL (9-23)
[2017-04-03 12:37] LABS: HEPATITIS B SURFACE ANTIBODY Nonreactive; HEPATITIS B SURFACE ANTIGEN Nonreactive
[2017-04-04] VITALS: BP 178/82
[2017-04-04 04:00] VITALS: BP 157/72
[2017-04-04 06:43] LABS: HEMATOCRIT 29.1 % (36.0-46.0); HEMOGLOBIN 9.6 G/DL (11.9-15.5); MCH 27.7 PG (29.0-34.0); MCV 84.1 FL (83-99); PLATELET COUNT 243 K/uL (156-360); RBC DIS.WIDTH-CV 13.6 % (11.8-14.6); RBC DIS.WIDTH-SD 42.1 % (39-53); RED BLOOD COUNT 3.46 M/uL (3.80-5.20); WHITE BLOOD COUNT 10.5 K/uL (4.1-10.2)
[2017-04-04 07:09] VITALS: BP 181/80
[2017-04-04 07:12] LABS: CHLORIDE 104 MEQ/L (99-109); GLUCOSE 128 mg/dL (70-99)
[2017-04-04 07:19] LABS: CREATININE 4.3 MG/DL (0.6-1.3); GFR ESTIMATE (CALCULATED) 11 mL/min/; SODIUM 142 MEQ/L (136-147); UREA NITROGEN (BUN) 45 mg/dL (9-23)
[2017-04-04 11:28] VITALS: BP 126/86
[2017-04-04 20:52] VITALS: BP 196/92
[2017-04-05] VITALS (8 sets, daily range): BP systolic 160–201; BP diastolic 72–89
[2017-04-05 06:50] LABS: BASOPHIL (%) 0.1 % (0-1); EOSINOPHIL (%) 0 % (0-5); HEMOGLOBIN 9.8 G/DL (11.9-15.5); IMMATURE GRANULOCYTE (%) 1.9 % (0.0-0.7); LYMPHOCYTE (%) 5.1 % (15-42); LYMPHOCYTE COUNT 0.5 K/uL (1.0-2.8); MCH 27.9 PG (29.0-34.0); MCHC 32.7 G/DL (30.0-36.0); MCV 85.5 FL (83-99); MONOCYTE (%) 4.3 % (3-12); MONOCYTE COUNT 0.4 K/uL (0-0.8); NEUTROPHIL (%) 88.6 % (45-76); NEUTROPHIL COUNT 9.1 K/uL (1.8-6.4); PLATELET COUNT 250 K/uL (156-360); RBC DIS.WIDTH-CV 13.6 % (11.8-14.6); RBC DIS.WIDTH-SD 42.1 % (39-53); RED BLOOD COUNT 3.51 M/uL (3.80-5.20); WHITE BLOOD COUNT 10.3 K/uL (4.1-10.2)
[2017-04-05 07:10] LABS: CHLORIDE 103 MEQ/L (99-109); GFR ESTIMATE (CALCULATED) 15 mL/min/; GLUCOSE 120 mg/dL (70-99); MAGNESIUM 1.9 mg/dl (1.3-2.7); PHOSPHORUS 4.2 mg/dL (2.5-4.9); POTASSIUM 3.5 MEQ/L (3.7-5.4); SODIUM 140 MEQ/L (136-147); UREA NITROGEN (BUN) 33 mg/dL (9-23)
[2017-04-05 07:18] LABS: CREATININE 3.5 MG/DL (0.6-1.3)
[2017-04-05 22:29] LABS: GLUCOSE 530 mg/dL (70-99)
[2017-04-06 06:35] VITALS: BP 162/61
[2017-04-06 06:38] LABS: BASOPHIL (%) 0.1 % (0-1); EOSINOPHIL (%) 0 % (0-5); HEMATOCRIT 29.9 % (36.0-46.0); HEMOGLOBIN 9.8 G/DL (11.9-15.5); LYMPHOCYTE (%) 4.9 % (15-42); LYMPHOCYTE COUNT 0.7 K/uL (1.0-2.8); MCH 27.8 PG (29.0-34.0); MCHC 32.8 G/DL (30.0-36.0); MCV 84.9 FL (83-99); MONOCYTE (%) 4.6 % (3-12); MONOCYTE COUNT 0.6 K/uL (0-0.8); NEUTROPHIL (%) 88.4 % (45-76); NEUTROPHIL COUNT 11.9 K/uL (1.8-6.4); PLATELET COUNT 264 K/uL (156-360); RBC DIS.WIDTH-CV 13.4 % (11.8-14.6); RBC DIS.WIDTH-SD 41.3 % (39-53); RED BLOOD COUNT 3.52 M/uL (3.80-5.20); WHITE BLOOD COUNT 13.4 K/uL (4.1-10.2)
[2017-04-06 06:39] LABS: CHLORIDE 101 MEQ/L (99-109); GFR ESTIMATE (CALCULATED) 11 mL/min/; POTASSIUM 3.4 MEQ/L (3.7-5.4); SODIUM 137 MEQ/L (136-147)
[2017-04-06 06:41] LABS: CREATININE 4.6 MG/DL (0.6-1.3); GLUCOSE 115 mg/dL (70-99); UREA NITROGEN (BUN) 57 mg/dL (9-23)
[2017-04-06 11:45] VITALS: BP 220/100
[2017-04-06 13:00] VITALS: BP 170/89
[2017-04-06 16:59] VITALS: BP 198/88
[2017-04-06 19:28] VITALS: BP 140/72
[2017-04-06 23:50] VITALS: BP 184/82
[2017-04-07 04:10] VITALS: BP 162/76
[2017-04-07 04:19] VITALS: BP 141/62
[2017-04-07 08:00] VITALS: BP 150/78
[2017-04-07 15:20] VITALS: BP 130/72
[2017-04-07] MEDS ORDERED: AMOX TR-K CLV1 EAC4 PO (16:00)
[2017-04-07] MEDS ORDERED: NIFEDIPINE ER30 MG PO (16:01)
[2017-04-07] MEDS ORDERED: ACIDOPHILUS LA1 EACH PO (16:04)
[2017-04-07] MEDS ORDERED: ZOFRAN ODT4 MG PO (16:05)
[2017-04-07 17:13] VITALS: BP 130/78
== END 2017-04-07 18:26 | disposition home health service (06) | DRG 871 ==
LOC: EME 12:12 → EDOF 16:11 → 4EAST 16:11 → ENRESERV 16:12 → 4EAST 19:36 → ENRESERV 04-03 14:51 → 4SOUTH 04-03 16:58
PROVIDERS: Emergency Medicine; Hospitalist; Internal Medicine; Internal Medicine Nephrology
DX: A41.9 Sepsis, unspecified organism (principal); R65.20 Severe sepsis without septic shock; J96.01 Acute respiratory failure with hypoxia; N17.0 Acute kidney failure with tubular necrosis; J10.08 Influenza due to other identified influenza virus with other specified pneumonia; J15.9 Unspecified bacterial pneumonia; M32.14 Glomerular disease in systemic lupus erythematosus; N18.6 End stage renal disease; E11.22 Type 2 diabetes mellitus with diabetic chronic kidney disease; I13.2 Hypertensive heart and chronic kidney disease with heart failure and with stage 5 chronic kidney disease, or end stage renal disease; I50.32 Chronic diastolic (congestive) heart failure; E87.2 Acidosis; E87.6 Hypokalemia; I27.20 Pulmonary hypertension, unspecified; J45.909 Unspecified asthma, uncomplicated; D63.1 Anemia in chronic kidney disease; G89.4 Chronic pain syndrome; M79.7 Fibromyalgia; G43.909 Migraine, unspecified, not intractable, without status migrainosus; K21.9 Gastro-esophageal reflux disease without esophagitis; I25.10 Atherosclerotic heart disease of native coronary artery without angina pectoris; E78.5 Hyperlipidemia, unspecified; F32.9 Major depressive disorder, single episode, unspecified; I25.2 Old myocardial infarction; Z95.5 Presence of coronary angioplasty implant and graft; Z79.4 Long term (current) use of insulin; Z79.52 Long term (current) use of systemic steroids; Z83.3 Family history of diabetes mellitus
CPT/HCPCS: 36600; 71045; 76770; 80048; 80053; 81003; 82272; 82570; 82803; 82948; 83605; 83735; 83880; 84100; 84156; 84484; 84999; 85014; 85018; 85025; 85027; 86706; 86850; 86900; 86901; 86920; 87040; 87070; 87086; 87205; 87340; 87449; 87502; 93005; 94640; 94640 76; 94799; 99202; 99281; 99285; C1788; J0690; J0692; J1644; J1720; J1815; J1940; J1956; J2250; J2405; J3010; J3370; J7030; P9016

== ENCOUNTER 2017-06-13 21:49 | Inpatient (IN) | payer OTHER ==
[~2017-06-13] VITALS: Ht 160 cm; Wt 50.0 kg
[~2017-06-13 21:49] MED LIST changes: +ACIDOPHILUS LA1 EACH PO; +BASAGLAR K100 UNIT/1 SC; +NIFEDIPINE ER30 MG PO; +ZOFRAN ODT4 MG PO
[2017-06-13 22:26] LABS: HEMATOCRIT 38.8 % (36.0-46.0); HEMOGLOBIN 12.2 G/DL (11.9-15.5); MCH 27.7 PG (29.0-34.0); MCHC 31.4 G/DL (30.0-36.0); MCV 88.2 FL (83-99); PLATELET COUNT 367 K/uL (156-360); RBC DIS.WIDTH-CV 14.4 % (11.8-14.6); RBC DIS.WIDTH-SD 46.3 % (39-53); WHITE BLOOD COUNT 9.7 K/uL (4.1-10.2)
[2017-06-13 22:49] LABS: ALBUMIN 2.7 g/dL (3.2-4.8); CHLORIDE 94 mEq/L (99-109); POTASSIUM 4.4 mEq/L (3.7-5.4); SODIUM 129 mEq/L (136-147)
[2017-06-13 22:53] LABS: TOTAL BILIRUBIN 0.2 mg/dL (0.0-1.0)
[2017-06-13 22:54] LABS: GLUCOSE 680 mg/dL (70-99)
[2017-06-13 22:55] LABS: ALKALINE PHOSPHATASE 213 IU/L (3-129); CREATININE 3.5 mg/dL (0.6-1.3); GFR ESTIMATE (CALCULATED) 14 mL/min/
[2017-06-13 22:56] LABS: UREA NITROGEN (BUN) 24 mg/dL (9-23)
[2017-06-13 22:57] LABS: AST (GOT) 35 IU/L (2-34)
[2017-06-13 22:58] LABS: ALT (GPT) 18 IU/L (3-49)
[2017-06-13 23:04] LABS: QUANTITATIVE HCG < 4.0 MIU/ML
[2017-06-14] VITALS (20 sets, daily range): BP systolic 146–199; BP diastolic 66–95
[2017-06-14 00:33] LABS: BASE EXCESS -15.1 mEq/L (-3 to +3); BICARBONATE 11.1 mEq/L (22-26); CARBOXY HGB 1.5 % (0-5); METHEMOGLOBIN 1.2 % (0-1.5); PCO2 27 mm Hg (35-45); PO2 111 mm Hg (80-100)
[2017-06-14 00:34] LABS: FI02 21 %; SITE LR; pH 7.22 (7.35-7.45)
[2017-06-14 01:33] LABS: CHLORIDE 95 mEq/L (99-109); POTASSIUM 4.4 mEq/L (3.7-5.4); SODIUM 129 mEq/L (136-147)
[2017-06-14 01:38] LABS: PHOSPHORUS 6.2 mg/dL (2.5-4.9)
[2017-06-14 01:39] LABS: CREATININE 3.6 mg/dL (0.6-1.3); GFR ESTIMATE (CALCULATED) 14 mL/min/
[2017-06-14 01:40] LABS: UREA NITROGEN (BUN) 26 mg/dL (9-23)
[2017-06-14 01:53] LABS: GLUCOSE 688 mg/dL (70-99)
[2017-06-14] MEDS ORDERED: REGLAN10 MG PO (02:58)
[2017-06-14 05:39] LABS: CHLORIDE 99 mEq/L (99-109); POTASSIUM 3.7 mEq/L (3.7-5.4); SODIUM 131 mEq/L (136-147)
[2017-06-14 05:44] LABS: CREATININE 3.4 mg/dL (0.6-1.3); GFR ESTIMATE (CALCULATED) 15 mL/min/; PHOSPHORUS 4.5 mg/dL (2.5-4.9)
[2017-06-14 05:45] LABS: UREA NITROGEN (BUN) 26 mg/dL (9-23)
[2017-06-14 06:05] LABS: GLUCOSE 425 mg/dL (70-99)
[2017-06-14 07:00] LABS: APPEARANCE SL.HAZY ((CLEAR)); BILIRUBIN NEGATIVE; BLOOD LARGE; COLOR YELLOW ((YELLOW)); GLUCOSE (STRIP) >=500; KETONES 80; LEUKOCYTES NEGATIVE; NITRITE NEGATIVE; PROTEIN (STRIP) >=500; SPECIFIC GRAVITY 1.016 (1.000-1.030); UROBILINOGEN 0.2 MG/DL (0.2-1.0)
[2017-06-14 07:09] LABS: BACTERIA RARE /HPF; EPITHELIAL CELLS NONE SEEN /HPF; MUCUS NONE SEEN /LPF; RED BLOOD CELLS TNTC /HPF (0-5); UCUL ADDED? YES; WHITE BLOOD CELLS 0-5 /HPF (0-5)
[2017-06-14 08:44] LABS: CHLORIDE 103 MEQ/L (99-109); CREATININE 3.1 MG/DL (0.6-1.3); GFR ESTIMATE (CALCULATED) 17 mL/min/; PHOSPHORUS 4.1 mg/dL (2.5-4.9); POTASSIUM 3.5 MEQ/L (3.7-5.4); SODIUM 135 MEQ/L (136-147); UREA NITROGEN (BUN) 25 mg/dL (9-23)
[2017-06-14 08:50] LABS: GLUCOSE 173 mg/dL (70-99)
[2017-06-14] MEDS ORDERED: CALCIUM ACETAT667 MG PO (11:13)
[2017-06-14 13:10] LABS: CHLORIDE 102 MEQ/L (99-109); CREATININE 3.1 MG/DL (0.6-1.3); GFR ESTIMATE (CALCULATED) 17 mL/min/; POTASSIUM 3.8 MEQ/L (3.7-5.4); SODIUM 135 MEQ/L (136-147); UREA NITROGEN (BUN) 23 mg/dL (9-23)
[2017-06-14 13:19] LABS: GLUCOSE 88 mg/dL (70-99)
[2017-06-14 16:05] LABS: CHLORIDE 101 MEQ/L (99-109); CREATININE 3.1 MG/DL (0.6-1.3); GFR ESTIMATE (CALCULATED) 17 mL/min/; PHOSPHORUS 5.3 mg/dL (2.5-4.9); POTASSIUM 3.5 MEQ/L (3.7-5.4); SODIUM 133 MEQ/L (136-147); UREA NITROGEN (BUN) 22 mg/dL (9-23)
[2017-06-14 16:30] LABS: GLUCOSE 137 mg/dL (70-99)
[2017-06-14 20:23] LABS: CHLORIDE 100 MEQ/L (99-109); CREATININE 3.1 MG/DL (0.6-1.3); GFR ESTIMATE (CALCULATED) 17 mL/min/; GLUCOSE 148 mg/dL (70-99); PHOSPHORUS 4.7 mg/dL (2.5-4.9); POTASSIUM 3.3 MEQ/L (3.7-5.4); SODIUM 133 MEQ/L (136-147); UREA NITROGEN (BUN) 22 mg/dL (9-23)
[2017-06-15] VITALS (10 sets, daily range): BP systolic 140–199; BP diastolic 71–96
[2017-06-15 06:15] LABS: BASOPHIL (%) 0.9 % (0-1); BASOPHIL COUNT 0.1 K/uL (0-0.1); EOSINOPHIL (%) 0 % (0-5); HEMATOCRIT 31.6 % (36.0-46.0); IMMATURE GRANULOCYTE (%) 0.6 % (0.0-0.7); LYMPHOCYTE (%) 22.6 % (15-42); LYMPHOCYTE COUNT 1.6 K/uL (1.0-2.8); MCH 26.7 PG (29.0-34.0); MCHC 31.3 G/DL (30.0-36.0); MCV 85.2 FL (83-99); MONOCYTE (%) 10.1 % (3-12); MONOCYTE COUNT 0.7 K/uL (0-0.8); NEUTROPHIL (%) 65.8 % (45-76); NEUTROPHIL COUNT 4.6 K/uL (1.8-6.4); PLATELET COUNT 294 K/uL (156-360); RBC DIS.WIDTH-CV 14.5 % (11.8-14.6); RBC DIS.WIDTH-SD 45.2 % (39-53); RED BLOOD COUNT 3.71 M/uL (3.80-5.20)
[2017-06-15 06:23] LABS: CHLORIDE 105 MEQ/L (99-109); CREATININE 3.3 MG/DL (0.6-1.3); GFR ESTIMATE (CALCULATED) 15 mL/min/; MAGNESIUM 1.4 mg/dl (1.3-2.7); PHOSPHORUS 4.8 mg/dL (2.5-4.9); SODIUM 137 MEQ/L (136-147); UREA NITROGEN (BUN) 22 mg/dL (9-23)
[2017-06-15 06:28] LABS: HEMOGLOBIN 9.9 G/DL (11.9-15.5)
[2017-06-15 06:35] LABS: GLUCOSE 85 mg/dL (70-99)
[2017-06-16] VITALS (8 sets, daily range): BP systolic 108–162; BP diastolic 53–76
[2017-06-16 06:43] LABS: BASOPHIL (%) 1.1 % (0-1); BASOPHIL COUNT 0.1 K/uL (0-0.1); EOSINOPHIL (%) 0 % (0-5); HEMATOCRIT 33.6 % (36.0-46.0); HEMOGLOBIN 10.4 G/DL (11.9-15.5); IMMATURE GRANULOCYTE (%) 0.6 % (0.0-0.7); LYMPHOCYTE (%) 23.1 % (15-42); LYMPHOCYTE COUNT 1.5 K/uL (1.0-2.8); MCH 26.7 PG (29.0-34.0); MCV 86.4 FL (83-99); MONOCYTE (%) 8.6 % (3-12); MONOCYTE COUNT 0.6 K/uL (0-0.8); NEUTROPHIL (%) 66.6 % (45-76); NEUTROPHIL COUNT 4.2 K/uL (1.8-6.4); PLATELET COUNT 300 K/uL (156-360); RBC DIS.WIDTH-CV 14.8 % (11.8-14.6); RBC DIS.WIDTH-SD 47.7 % (39-53); RED BLOOD COUNT 3.89 M/uL (3.80-5.20); WHITE BLOOD COUNT 6.4 K/uL (4.1-10.2)
[2017-06-16 07:03] LABS: ALKALINE PHOSPHATASE 154 IU/L (3-129); ALT (GPT) 15 IU/L (3-49); AST (GOT) 33 IU/L (2-34); CHLORIDE 98 MEQ/L (99-109); SODIUM 134 MEQ/L (136-147); TOTAL BILIRUBIN 0.3 MG/DL (0.0-1.0); TOTAL PROTEIN 4.3 G/DL (6.4-8.3); UREA NITROGEN (BUN) 8 mg/dL (9-23)
[2017-06-16 07:05] LABS: CREATININE 2.1 MG/DL (0.6-1.3); GFR ESTIMATE (CALCULATED) 26 mL/min/; GLUCOSE 448 mg/dL (70-99); POTASSIUM 4.4 MEQ/L (3.7-5.4)
[2017-06-16 10:04] LABS: GLUCOSE 533 mg/dL (70-99)
[2017-06-17 03:43] VITALS: BP 149/76
[2017-06-17 06:34] LABS: BASOPHIL (%) 1.1 % (0-1); BASOPHIL COUNT 0.1 K/uL (0-0.1); EOSINOPHIL (%) 0 % (0-5); HEMATOCRIT 30.3 % (36.0-46.0); HEMOGLOBIN 9.3 G/DL (11.9-15.5); IMMATURE GRANULOCYTE (%) 0.7 % (0.0-0.7); LYMPHOCYTE (%) 23.8 % (15-42); LYMPHOCYTE COUNT 1.3 K/uL (1.0-2.8); MCH 26.8 PG (29.0-34.0); MCHC 30.7 G/DL (30.0-36.0); MCV 87.3 FL (83-99); MONOCYTE (%) 7.7 % (3-12); MONOCYTE COUNT 0.4 K/uL (0-0.8); NEUTROPHIL (%) 66.7 % (45-76); NEUTROPHIL COUNT 3.7 K/uL (1.8-6.4); PLATELET COUNT 277 K/uL (156-360); RBC DIS.WIDTH-CV 14.9 % (11.8-14.6); RBC DIS.WIDTH-SD 47.9 % (39-53); RED BLOOD COUNT 3.47 M/uL (3.80-5.20); WHITE BLOOD COUNT 5.6 K/uL (4.1-10.2)
[2017-06-17 07:00] VITALS: BP 146/79
[2017-06-17 07:06] LABS: ALBUMIN 1.8 G/DL (3.2-4.8); ALKALINE PHOSPHATASE 128 IU/L (3-129); ALT (GPT) 13 IU/L (3-49); AST (GOT) 26 IU/L (2-34); CHLORIDE 101 MEQ/L (99-109); GLUCOSE 377 mg/dL (70-99); POTASSIUM 4.6 MEQ/L (3.7-5.4); SODIUM 135 MEQ/L (136-147); TOTAL PROTEIN 3.9 G/DL (6.4-8.3); UREA NITROGEN (BUN) 15 mg/dL (9-23)
[2017-06-17 07:08] LABS: CREATININE 2.6 MG/DL (0.6-1.3); GFR ESTIMATE (CALCULATED) 20 mL/min/; TOTAL BILIRUBIN 0.2 MG/DL (0.0-1.0)
[2017-06-17 11:13] VITALS: BP 159/80
[2017-06-17 15:44] VITALS: BP 165/77
[2017-06-17 20:09] VITALS: BP 175/79
[2017-06-18] VITALS: BP 173/73
[2017-06-18 06:48] LABS: BASOPHIL COUNT 0.1 K/uL (0-0.1); EOSINOPHIL (%) 0 % (0-5); HEMATOCRIT 29.8 % (36.0-46.0); HEMOGLOBIN 9.1 G/DL (11.9-15.5); IMMATURE GRANULOCYTE (%) 0.8 % (0.0-0.7); LYMPHOCYTE (%) 23.9 % (15-42); LYMPHOCYTE COUNT 1.5 K/uL (1.0-2.8); MCH 26.8 PG (29.0-34.0); MCHC 30.5 G/DL (30.0-36.0); MCV 87.6 FL (83-99); MONOCYTE (%) 8.7 % (3-12); MONOCYTE COUNT 0.5 K/uL (0-0.8); NEUTROPHIL (%) 65.6 % (45-76); PLATELET COUNT 294 K/uL (156-360); RBC DIS.WIDTH-SD 47.8 % (39-53); WHITE BLOOD COUNT 6.1 K/uL (4.1-10.2)
[2017-06-18 07:13] LABS: CHLORIDE 105 MEQ/L (99-109); GFR ESTIMATE (CALCULATED) 17 mL/min/; GLUCOSE 112 mg/dL (70-99); POTASSIUM 4.1 MEQ/L (3.7-5.4); SODIUM 139 MEQ/L (136-147); UREA NITROGEN (BUN) 18 mg/dL (9-23)
[2017-06-18] MEDS ORDERED: NIFEDIPINE ER30 MG PO (11:44)
[2017-06-18] MEDS ORDERED: FUROSEMIDE40 MG PO (11:45)
[2017-06-18] MEDS ORDERED: LEVEMIR100 UNIT/2 SC (11:50)
== END 2017-06-18 15:57 | disposition home health service (06) | DRG 637 ==
LOC: EME 21:49 → 5SOUTH 06-14 01:14 → EDOF 06-14 01:14 → 4WEST 06-14 01:14 → ENRESERV 06-14 01:15 → 4WEST 06-14 02:20 → ENRESERV 06-15 08:45 → 5SOUTH 06-15 16:55
PROVIDERS: Emergency Medicine; Internal Medicine; Internal Medicine Gastroenterology; Internal Medicine Nephrology; Physician Assistant Medical
PROC: 5A1D70Z Performance of Urinary Filtration, Intermittent, Less than 6 Hours Per Day (ICD-10-PCS; principal; 2017-06-15)
PROC: 0DB68ZX Excision of Stomach, Via Natural or Artificial Opening Endoscopic, Diagnostic (ICD-10-PCS; 2017-06-16)
DX: E10.10 Type 1 diabetes mellitus with ketoacidosis without coma (principal); N18.6 End stage renal disease; I13.2 Hypertensive heart and chronic kidney disease with heart failure and with stage 5 chronic kidney disease, or end stage renal disease; I50.9 Heart failure, unspecified; E10.22 Type 1 diabetes mellitus with diabetic chronic kidney disease; E86.0 Dehydration; E87.1 Hypo-osmolality and hyponatremia; K31.84 Gastroparesis; E87.6 Hypokalemia; D63.1 Anemia in chronic kidney disease; M19.90 Unspecified osteoarthritis, unspecified site; M32.9 Systemic lupus erythematosus, unspecified; Z99.2 Dependence on renal dialysis; I25.2 Old myocardial infarction; I25.10 Atherosclerotic heart disease of native coronary artery without angina pectoris; F41.9 Anxiety disorder, unspecified; K29.70 Gastritis, unspecified, without bleeding; E10.43 Type 1 diabetes mellitus with diabetic autonomic (poly)neuropathy; F32.9 Major depressive disorder, single episode, unspecified; Z79.4 Long term (current) use of insulin; Z95.5 Presence of coronary angioplasty implant and graft; K25.9 Gastric ulcer, unspecified as acute or chronic, without hemorrhage or perforation; E88.09 Other disorders of plasma-protein metabolism, not elsewhere classified
CPT/HCPCS: 36600; 76705; 80048; 80048 91; 80053; 81003; 82803; 82947 91; 82948; 83036; 83605; 83735; 84100; 84702; 85025; 85027; 87077; 87086; 87186; 87641; 88305; 88342 TC; 93971; 99281; 99285; J1644; J1815; J2405; J7030; J7050

== ENCOUNTER 2017-07-26 00:43 | Inpatient (IN) | payer OTHER ==
[~2017-07-26] VITALS: Ht 160 cm; Wt 50.2 kg
[~2017-07-26 00:43] MED LIST changes: +REGLAN10 MG PO
[2017-07-26 01:17] LABS: BASOPHIL (%) 0.7 % (0-1); BASOPHIL COUNT 0.1 K/uL (0-0.1); EOSINOPHIL (%) 0 % (0-5); HEMATOCRIT 40.4 % (36.0-46.0); HEMOGLOBIN 12.9 G/DL (11.9-15.5); IMMATURE GRANULOCYTE (%) 0.3 % (0.0-0.7); LYMPHOCYTE COUNT 1.1 K/uL (1.0-2.8); MCH 27.3 PG (29.0-34.0); MCHC 31.9 G/DL (30.0-36.0); MCV 85.4 FL (83-99); MONOCYTE (%) 9.3 % (3-12); MONOCYTE COUNT 0.7 K/uL (0-0.8); NEUTROPHIL (%) 74.7 % (45-76); NEUTROPHIL COUNT 5.3 K/uL (1.8-6.4); PLATELET COUNT 240 K/uL (156-360); RBC DIS.WIDTH-SD 46.7 % (39-53); RED BLOOD COUNT 4.73 M/uL (3.80-5.20); WHITE BLOOD COUNT 7.1 K/uL (4.1-10.2)
[2017-07-26 01:29] LABS: ALBUMIN 2.4 g/dL (3.2-4.8); CHLORIDE 93 mEq/L (99-109); MAGNESIUM 2.1 mg/dL (1.3-2.7); POTASSIUM 2.8 mEq/L (3.7-5.4); SODIUM 135 mEq/L (136-147)
[2017-07-26 01:31] LABS: GLUCOSE 274 mg/dL (70-99); TOTAL PROTEIN 4.9 g/dL (6.4-8.3)
[2017-07-26 01:33] LABS: TOTAL BILIRUBIN 0.3 mg/dL (0.0-1.0)
[2017-07-26 01:35] LABS: ALKALINE PHOSPHATASE 135 IU/L (3-129); CREATININE 4.4 mg/dL (0.6-1.3); GFR ESTIMATE (CALCULATED) 11 mL/min/
[2017-07-26 01:36] LABS: AST (GOT) 27 IU/L (2-34); UREA NITROGEN (BUN) 18 mg/dL (9-23)
[2017-07-26 01:38] LABS: TROP-I INTERPRETATION NEGATIVE; TROPONIN-I 0.02 ng/mL (0.0-0.30)
[2017-07-26 01:38] LABS: ALT (GPT) 16 IU/L (3-49); CREATINE KINASE 196 IU/L (1-294); LIPASE 609 U/L (1.0-51.0); TOTAL CK 196 IU/L (1-294)
[2017-07-26 01:44] LABS: CK-MB 3.4 ng/mL (0.0-4.9); CKMB RELATIVE INDEX 1.7 (0.0-3.9)
[2017-07-26 03:58] LABS: BASE EXCESS 8.1 mEq/L (-3 to +3); BICARBONATE 34.2 mEq/L (22-26); CARBOXY HGB 2.1 % (0-5); COMMENTS - BLOOD GASES C+; DEVICE RA; METHEMOGLOBIN 1.3 % (0-1.5); PCO2 54 mm Hg (35-45); PO2 82 mm Hg (80-100); SITE RR; pH 7.41 (7.35-7.45)
[2017-07-26 05:55] VITALS: BP 117/58
[2017-07-26 07:25] LABS: BASOPHIL (%) 1.3 % (0-1); BASOPHIL COUNT 0.1 K/uL (0-0.1); EOSINOPHIL (%) 0.8 % (0-5); EOSINOPHIL COUNT 0.1 K/uL (0-0.3); HEMATOCRIT 37.3 % (36.0-46.0); HEMOGLOBIN 11.8 G/DL (11.9-15.5); IMMATURE GRANULOCYTE (%) 0.3 % (0.0-0.7); LYMPHOCYTE (%) 19.8 % (15-42); LYMPHOCYTE COUNT 1.2 K/uL (1.0-2.8); MCH 27.5 PG (29.0-34.0); MCHC 31.6 G/DL (30.0-36.0); MCV 86.9 FL (83-99); MONOCYTE (%) 5.7 % (3-12); MONOCYTE COUNT 0.4 K/uL (0-0.8); NEUTROPHIL (%) 72.1 % (45-76); NEUTROPHIL COUNT 4.4 K/uL (1.8-6.4); PLATELET COUNT 227 K/uL (156-360); RBC DIS.WIDTH-CV 15.1 % (11.8-14.6); RBC DIS.WIDTH-SD 48.3 % (39-53); RED BLOOD COUNT 4.29 M/uL (3.80-5.20); WHITE BLOOD COUNT 6.2 K/uL (4.1-10.2)
[2017-07-26 07:31] VITALS: BP 107/57
[2017-07-26 07:45] LABS: TROP-I INTERPRETATION NEGATIVE; TROPONIN-I < 0.01 ng/mL (0.0-0.30)
[2017-07-26 07:52] LABS: CHLORIDE 95 MEQ/L (99-109); CREATININE 3.7 MG/DL (0.6-1.3); GFR ESTIMATE (CALCULATED) 14 mL/min/; GLUCOSE 368 mg/dL (70-99); POTASSIUM 2.6 MEQ/L (3.7-5.4); SODIUM 136 MEQ/L (136-147); UREA NITROGEN (BUN) 18 mg/dL (9-23)
[2017-07-26 09:36] LABS: C-REACTIVE PROTEIN 37.2 MG/L (0-10)
[2017-07-26 13:07] LABS: TROP-I INTERPRETATION NEGATIVE; TROPONIN-I < 0.01 ng/mL (0.0-0.30)
[2017-07-26 13:14] LABS: CHLORIDE 101 MEQ/L (99-109); SODIUM 138 MEQ/L (136-147); UREA NITROGEN (BUN) 4 mg/dL (9-23)
[2017-07-26 13:15] LABS: CREATININE 1.3 MG/DL (0.6-1.3); GFR ESTIMATE (CALCULATED) 45 mL/min/; GLUCOSE 167 mg/dL (70-99); POTASSIUM 3.6 MEQ/L (3.7-5.4)
[2017-07-26 15:27] VITALS: BP 164/70
[2017-07-26 19:23] VITALS: BP 130/64
[2017-07-26 23:52] VITALS: BP 97/53
[2017-07-27 03:43] VITALS: BP 95/50
[2017-07-27 05:44] LABS: APPEARANCE CLOUDY ((CLEAR)); BILIRUBIN NEGATIVE; BLOOD LARGE; COLOR AMBER ((YELLOW)); GLUCOSE (STRIP) >=500; KETONES 20; LEUKOCYTES NEGATIVE; NITRITE NEGATIVE; PROTEIN (STRIP) >=500; SPECIFIC GRAVITY 1.025 (1.000-1.030); UROBILINOGEN 0.2 MG/DL (0.2-1.0)
[2017-07-27 06:02] LABS: BACTERIA 2+ /HPF; EPITHELIAL CELLS 1+ /HPF; HYALINE CASTS TNTC /LPF; MUCUS NONE SEEN /LPF; RED BLOOD CELLS TNTC /HPF (0-5); UCUL ADDED? YES; WHITE BLOOD CELLS TNTC /HPF (0-5)
[2017-07-27 06:18] LABS: BASOPHIL (%) 1.9 % (0-1); BASOPHIL COUNT 0.1 K/uL (0-0.1); EOSINOPHIL (%) 0 % (0-5); HEMATOCRIT 37.2 % (36.0-46.0); HEMOGLOBIN 11.2 G/DL (11.9-15.5); IMMATURE GRANULOCYTE (%) 0.4 % (0.0-0.7); LYMPHOCYTE (%) 24.2 % (15-42); LYMPHOCYTE COUNT 1.1 K/uL (1.0-2.8); MCH 27.1 PG (29.0-34.0); MCHC 30.1 G/DL (30.0-36.0); MCV 89.9 FL (83-99); MONOCYTE (%) 10.5 % (3-12); MONOCYTE COUNT 0.5 K/uL (0-0.8); NEUTROPHIL COUNT 2.9 K/uL (1.8-6.4); PLATELET COUNT 216 K/uL (156-360); RBC DIS.WIDTH-CV 15.3 % (11.8-14.6); RBC DIS.WIDTH-SD 50.2 % (39-53); RED BLOOD COUNT 4.14 M/uL (3.80-5.20); WHITE BLOOD COUNT 4.7 K/uL (4.1-10.2)
[2017-07-27 07:00] LABS: ALBUMIN 2.1 G/DL (3.2-4.8); ALKALINE PHOSPHATASE 114 IU/L (3-129); ALT (GPT) 14 IU/L (3-49); AST (GOT) 27 IU/L (2-34); CHLORIDE 104 MEQ/L (99-109); LIPASE 244 U/L (1.0-51.0); MAGNESIUM 2.1 mg/dl (1.3-2.7); SODIUM 137 MEQ/L (136-147); TOTAL BILIRUBIN 0.3 MG/DL (0.0-1.0); TOTAL PROTEIN 4.5 G/DL (6.4-8.3); UREA NITROGEN (BUN) 7 mg/dL (9-23)
[2017-07-27 07:04] LABS: GFR ESTIMATE (CALCULATED) 28 mL/min/; GLUCOSE 311 mg/dL (70-99); POTASSIUM 5.3 MEQ/L (3.7-5.4)
[2017-07-27 07:45] VITALS: BP 109/53
[2017-07-27] MEDS ORDERED: PROCARDIA XL30 MG PO (11:17)
[2017-07-27] MEDS ORDERED: RENVELA2.4 GM PO (11:19)
[2017-07-27] MEDS ORDERED: COMPAZINE10 MG PO (11:19)
[2017-07-27] MEDS ORDERED: ATIVAN0.5 MG PO (11:20)
[2017-07-27] MEDS ORDERED: ZOFRAN ODT4 MG PO (11:20)
[2017-07-27 12:10] VITALS: BP 112/58
[2017-07-27 15:26] VITALS: BP 119/58
[2017-07-27 19:34] VITALS: BP 110/59
[2017-07-27 23:58] VITALS: BP 109/56
[2017-07-28 04:22] VITALS: BP 133/63
[2017-07-28 05:47] LABS: HEMATOCRIT 37.6 % (36.0-46.0); HEMOGLOBIN 11.4 G/DL (11.9-15.5); MCH 26.8 PG (29.0-34.0); MCHC 30.3 G/DL (30.0-36.0); MCV 88.3 FL (83-99); PLATELET COUNT 241 K/uL (156-360); RBC DIS.WIDTH-CV 15.4 % (11.8-14.6); RBC DIS.WIDTH-SD 49.8 % (39-53); RED BLOOD COUNT 4.26 M/uL (3.80-5.20)
[2017-07-28 06:40] LABS: ALBUMIN 2.1 G/DL (3.2-4.8); ALKALINE PHOSPHATASE 115 IU/L (3-129); ALT (GPT) 15 IU/L (3-49); AST (GOT) 30 IU/L (2-34); CHLORIDE 105 MEQ/L (99-109); HDL CHOLESTEROL 85 MG/DL (Desirable>=50); LDL CHOLESTEROL 71 mg/dL (Desirable<100); LIPASE 342 U/L (1.0-51.0); NON-HDL CHOLESTEROL 89 mg/dL (Desirable<160); POTASSIUM 4.4 MEQ/L (3.7-5.4); SODIUM 136 MEQ/L (136-147); TOTAL CHOLESTEROL 174 mg/dL (Desirable<200); TOTAL PROTEIN 4.2 G/DL (6.4-8.3); TRIGLYCERIDES 90 MG/DL (Normal: <150); UREA NITROGEN (BUN) 12 mg/dL (9-23)
[2017-07-28 06:41] LABS: CREATININE 2.6 MG/DL (0.6-1.3); GFR ESTIMATE (CALCULATED) 20 mL/min/; GLUCOSE 149 mg/dL (70-99)
[2017-07-28 06:42] LABS: TOTAL BILIRUBIN 0.2 MG/DL (0.0-1.0)
[2017-07-28 08:17] VITALS: BP 104/59
[2017-07-28 11:33] VITALS: BP 107/64
[2017-07-28 16:39] VITALS: BP 147/76
[2017-07-28 20:20] VITALS: BP 161/76
[2017-07-28 23:32] VITALS: BP 186/83
[2017-07-29 04:04] VITALS: BP 170/82
[2017-07-29 05:59] LABS: HEMATOCRIT 35.4 % (36.0-46.0); HEMOGLOBIN 10.9 G/DL (11.9-15.5); MCH 27.3 PG (29.0-34.0); MCHC 30.8 G/DL (30.0-36.0); MCV 88.5 FL (83-99); PLATELET COUNT 233 K/uL (156-360); RBC DIS.WIDTH-CV 15.5 % (11.8-14.6); RBC DIS.WIDTH-SD 49.6 % (39-53); WHITE BLOOD COUNT 6.5 K/uL (4.1-10.2)
[2017-07-29 06:35] LABS: ALKALINE PHOSPHATASE 109 IU/L (3-129); ALT (GPT) 14 IU/L (3-49); AST (GOT) 28 IU/L (2-34); CHLORIDE 104 MEQ/L (99-109); GFR ESTIMATE (CALCULATED) 17 mL/min/; GLUCOSE 136 mg/dL (70-99); LIPASE 429 U/L (1.0-51.0); SODIUM 135 MEQ/L (136-147); TOTAL BILIRUBIN 0.2 MG/DL (0.0-1.0); TOTAL PROTEIN 3.9 G/DL (6.4-8.3); UREA NITROGEN (BUN) 17 mg/dL (9-23)
[2017-07-29 06:36] LABS: POTASSIUM 5.6 MEQ/L (3.7-5.4)
[2017-07-29 07:45] VITALS: BP 164/81
[2017-07-29 10:11] LABS: C DIFF TOXIN POSITIVE (NEGATIVE)
[2017-07-29] MEDS ORDERED: VANCOCIN HCL125 MG PO (16:11)
[2017-07-30 00:05] VITALS: BP 184/84
[2017-07-30 05:53] LABS: MCHC 30.6 G/DL (30.0-36.0); MCV 88.2 FL (83-99); PLATELET COUNT 219 K/uL (156-360); RBC DIS.WIDTH-CV 15.3 % (11.8-14.6); RED BLOOD COUNT 4.08 M/uL (3.80-5.20)
[2017-07-30 06:30] LABS: CHLORIDE 99 MEQ/L (99-109); GFR ESTIMATE (CALCULATED) 31 mL/min/; POTASSIUM 4.8 MEQ/L (3.7-5.4); SODIUM 132 MEQ/L (136-147); UREA NITROGEN (BUN) 7 mg/dL (9-23)
[2017-07-30 06:40] LABS: CREATININE 1.8 MG/DL (0.6-1.3); GLUCOSE 360 mg/dL (70-99)
[2017-07-30 08:21] VITALS: BP 175/77
[2017-07-30 15:43] VITALS: BP 165/72
[2017-07-30 15:44] VITALS: BP 154/71
[2017-07-30] MEDS ORDERED: CARVEDILOL6.25 MG PO (15:52)
== END 2017-07-30 17:36 | disposition home health service (06) | DRG 438 ==
LOC: EME → EDBD 00:43 → EME 00:43 → EDOF 02:55 → 5SOUTH 02:55 → ENRESERV 02:56 → 5SOUTH 05:06 → ENPENDDIS 07-30 16:22 → 5SOUTH 07-30 17:36
PROVIDERS: Emergency Medicine; Hospitalist; Internal Medicine Gastroenterology; Physician Assistant; Physician Assistant Medical
PROC: 5A1D70Z Performance of Urinary Filtration, Intermittent, Less than 6 Hours Per Day (ICD-10-PCS; principal; 2017-07-26)
DX: K85.90 Acute pancreatitis without necrosis or infection, unspecified (principal); N18.6 End stage renal disease; Z68.1 Body mass index [BMI] 19.9 or less, adult; I13.2 Hypertensive heart and chronic kidney disease with heart failure and with stage 5 chronic kidney disease, or end stage renal disease; A04.72 Enterocolitis due to Clostridium difficile, not specified as recurrent; E87.1 Hypo-osmolality and hyponatremia; N25.81 Secondary hyperparathyroidism of renal origin; E87.3 Alkalosis; F33.9 Major depressive disorder, recurrent, unspecified; F41.9 Anxiety disorder, unspecified; E87.6 Hypokalemia; E86.0 Dehydration; E83.42 Hypomagnesemia; E78.5 Hyperlipidemia, unspecified; I50.9 Heart failure, unspecified; K21.9 Gastro-esophageal reflux disease without esophagitis; K59.00 Constipation, unspecified; M19.90 Unspecified osteoarthritis, unspecified site; E10.43 Type 1 diabetes mellitus with diabetic autonomic (poly)neuropathy; E10.22 Type 1 diabetes mellitus with diabetic chronic kidney disease; E10.649 Type 1 diabetes mellitus with hypoglycemia without coma; E10.65 Type 1 diabetes mellitus with hyperglycemia; M32.14 Glomerular disease in systemic lupus erythematosus; K31.84 Gastroparesis; D63.1 Anemia in chronic kidney disease; I25.10 Atherosclerotic heart disease of native coronary artery without angina pectoris; K86.89 Other specified diseases of pancreas; K29.70 Gastritis, unspecified, without bleeding; E87.5 Hyperkalemia; I45.81 Long QT syndrome; Z99.2 Dependence on renal dialysis; Z79.4 Long term (current) use of insulin; Z87.11 Personal history of peptic ulcer disease; I25.2 Old myocardial infarction; Z95.5 Presence of coronary angioplasty implant and graft; Z88.1 Allergy status to other antibiotic agents; Z88.2 Allergy status to sulfonamides; Z88.6 Allergy status to analgesic agent; Z91.14 Patient's other noncompliance with medication regimen; Z82.5 Family history of asthma and other chronic lower respiratory diseases; Z83.3 Family history of diabetes mellitus
CPT/HCPCS: 36600; 71046; 74176; 76705; 80048; 80048 91; 80053; 80061; 81003; 82550; 82553; 82803; 82948; 83605; 83690; 83735; 84484; 84999; 85025; 85025 91; 85027; 86140; 87045; 87046; 87077; 87086; 87186; 87493; 87506; 93005; 99281; 99285; C9113; J1200; J1644; J1815; J2405; J3010; J3475; J7030; J7040; J7120

== ENCOUNTER 2017-08-31 11:04 | Day surgery (SDC) | payer OTHER ==
[~2017-08-31] VITALS: Ht 160 cm; Wt 47.6 kg
[~2017-08-31 11:04] MED LIST changes: +ATIVAN0.5 MG PO; +CARVEDILOL6.25 MG PO; +COMPAZINE10 MG PO; +COREG6.25 M1 PO; +PROCARDIA XL30 MG PO; +RENVELA2.4 GM PO; +VANCOCIN HCL125 MG PO
[2017-08-31 11:48] LABS: HEMATOCRIT 33.8 % (36.0-46.0); HEMOGLOBIN 10.5 G/DL (11.9-15.5); MCH 27.4 PG (29.0-34.0); MCHC 31.1 G/DL (30.0-36.0); MCV 88.3 FL (83-99); PLATELET COUNT 327 K/uL (156-360); RBC DIS.WIDTH-CV 16.1 % (11.8-14.6); RBC DIS.WIDTH-SD 52.6 % (39-53); RED BLOOD COUNT 3.83 M/uL (3.80-5.20); WHITE BLOOD COUNT 7.3 K/uL (4.1-10.2)
[2017-08-31 11:58] VITALS: BP 135/69
[2017-08-31 12:19] LABS: CHLORIDE 97 MEQ/L (99-109); CREATININE 2.1 MG/DL (0.6-1.3); GFR ESTIMATE (CALCULATED) 26 mL/min/; GLUCOSE 341 mg/dL (70-99); POTASSIUM 3.1 MEQ/L (3.7-5.4); SODIUM 139 MEQ/L (136-147); UREA NITROGEN (BUN) 6 mg/dL (9-23)
[2017-08-31 16:47] VITALS: BP 139/64
[2017-08-31 17:35] VITALS: BP 140/64
== END 2017-08-31 17:35 | disposition home or self-care (01) ==
LOC: SDC 11:04
PROVIDERS: Surgery
PROC: 3E03317 Introduction of Other Thrombolytic into Peripheral Vein, Percutaneous Approach (ICD-10-PCS; principal; 2017-08-31)
PROC: 03180JD Bypass Left Brachial Artery to Upper Arm Vein with Synthetic Substitute, Open Approach (ICD-10-PCS; principal; 2017-08-31)
DX: I12.0 Hypertensive chronic kidney disease with stage 5 chronic kidney disease or end stage renal disease (principal); E11.22 Type 2 diabetes mellitus with diabetic chronic kidney disease; N18.6 End stage renal disease; Z99.2 Dependence on renal dialysis; Z79.4 Long term (current) use of insulin; E78.00 Pure hypercholesterolemia, unspecified; I25.10 Atherosclerotic heart disease of native coronary artery without angina pectoris; Z95.5 Presence of coronary angioplasty implant and graft; I25.2 Old myocardial infarction; Z88.0 Allergy status to penicillin; Z88.2 Allergy status to sulfonamides; Z88.8 Allergy status to other drugs, medicaments and biological substances
CPT/HCPCS: 80048; 82948; 85027; 87641; C1757; C1768; J0744; J1644; J2720

== ENCOUNTER 2017-09-29 13:03 | Emergency (ER) | payer OTHER ==
[~2017-09-29] VITALS: Ht 160 cm; Wt 46.6 kg
[2017-09-29 14:25] VITALS: BP 185/93
== END 2017-09-29 14:26 | disposition home or self-care (01) ==
LOC: EME 13:03
DX: T82.838A Hemorrhage due to vascular prosthetic devices, implants and grafts, initial encounter (principal); E11.22 Type 2 diabetes mellitus with diabetic chronic kidney disease; N18.6 End stage renal disease; Z99.2 Dependence on renal dialysis; I50.9 Heart failure, unspecified; M32.9 Systemic lupus erythematosus, unspecified; M79.7 Fibromyalgia; G43.909 Migraine, unspecified, not intractable, without status migrainosus; I25.2 Old myocardial infarction; Z79.4 Long term (current) use of insulin; Z79.82 Long term (current) use of aspirin; Z95.5 Presence of coronary angioplasty implant and graft; Z88.6 Allergy status to analgesic agent; Z88.0 Allergy status to penicillin; Z88.2 Allergy status to sulfonamides; Z88.1 Allergy status to other antibiotic agents; Z88.8 Allergy status to other drugs, medicaments and biological substances
CPT/HCPCS: 99281; 99284

== ENCOUNTER → 2017-11-11 | Outpatient (CLI) | payer OTHER | END | disposition home or self-care (01) | LOC: AMB 08:30 | PROC: 02PYX3Z Removal of Infusion Device from Great Vessel, External Approach (ICD-10-PCS; principal; 2017-11-11) | DX: Z45.2 Encounter for adjustment and management of vascular access device (principal); N18.6 End stage renal disease ==